=== PATIENT | female | born 1960 | race Caucasian/White ===

== ENCOUNTER → 2020-05-24 | Outpatient (CLI) | payer OTHER ==
[2020-05-24 15:25] LABS: Bilirubin, Urine Neg (Neg); Blood, Urine 1+ (Neg); Glucose Qualitative, Urine Neg (Neg); Ketones, Urine 1+ (Neg); Leukocyte Esterase, Urine 1+ (Neg); Nitrite, Urine Neg (Neg); Protein, Urine 1+ (Neg); Specific Gravity, Urine 1.015 (1.003-1.022); Urobilinogen, Urine 1+ (Normal)
[2020-05-24 15:46] LABS: Appearance, Urine Hazy (Clear); Color, Urine Yellow (P-Yellow)
[2020-05-24 16:12] LABS: Bacteria Rare /hpf; Squamous Epithelial Cells Few /hpf (Few); White Blood Cells, Urine 0-2 /hpf (0-5)
== END | disposition home or self-care (01) ==
LOC: LAB SHORT 08:00 → LAB SRC 08:00
PROVIDERS: Family Medicine
DX: R30.0 Dysuria (principal)
CPT/HCPCS: 81001; 87086

== ENCOUNTER → 2020-07-18 | Outpatient (CLI) | payer OTHER | END | disposition home or self-care (01) | LOC: LAB SHORT 14:23 → LAB SRC 14:23 | DX: R10.2 Pelvic and perineal pain (principal) | CPT/HCPCS: 87086 ==

== ENCOUNTER → 2020-08-01 | Outpatient (CLI) | payer OTHER ==
[2020-08-06 16:07] LABS: HPV 16 Negative (Negative); HPV 18 Negative (Negative); HPV OTHER HR TYPES Negative (Negative)
== END | disposition home or self-care (01) ==
LOC: LAB SHORT 18:15 → LAB 18:15
PROVIDERS: Registered Nurse
DX: Z12.4 Encounter for screening for malignant neoplasm of cervix (principal)
CPT/HCPCS: 87624; G0123

== ENCOUNTER 2021-04-18 07:17 | Day surgery (SDC) | payer OTHER ==
[~2021-04-18] VITALS: Ht 154.9 cm; Wt 62.1 kg
[~2021-04-18 07:17] MED LIST: AMLO10 PO; LOSARTAN POTAS100 M1 PO; MULTIPLE VITAM1 EACH PO; VITAMIN D325 MC3 PO; ZYRTEC10 M2 PO
== END 2021-04-18 09:15 | disposition home or self-care (01) ==
LOC: ORSCSDS 07:17
PROVIDERS: Internal Medicine Gastroenterology
PROC: 0DBM8ZX Excision of Descending Colon, Via Natural or Artificial Opening Endoscopic, Diagnostic (ICD-10-PCS; principal; 2021-04-18 08:30)
DX: K59.09 Other constipation (principal); Z86.010 Personal history of colon polyps; D12.4 Benign neoplasm of descending colon; K64.8 Other hemorrhoids; K57.30 Diverticulosis of large intestine without perforation or abscess without bleeding; I10 Essential (primary) hypertension; Z79.899 Other long term (current) drug therapy; F17.210 Nicotine dependence, cigarettes, uncomplicated
CPT/HCPCS: 88305; J2704; J7120

== ENCOUNTER → 2023-01-27 | Outpatient (CLI) | payer OTHER ==
[2023-01-27 16:48] LABS: Source, Urine Voided
[2023-01-27 17:54] LABS: Appearance, Urine Clear (Clear); Bilirubin, Urine Neg (Neg); Blood, Urine 1+ (Neg); Color, Urine Yellow (P-Yellow); Glucose Qualitative, Urine Neg (Neg); Ketones, Urine Neg (Neg); Leukocyte Esterase, Urine 2+ (Neg); Nitrite, Urine Neg (Neg); Protein, Urine 1+ (Neg); Specific Gravity, Urine 1.015 (1.003-1.022); Urobilinogen, Urine NORM (Normal)
[2023-01-27 18:09] LABS: Bacteria Mod /hpf; Squamous Epithelial Cells Few /hpf (Few)
== END | disposition home or self-care (01) ==
LOC: LAB 09:15 → LAB SHORT 09:15
PROVIDERS: Registered Nurse
DX: R30.0 Dysuria (principal); R35.0 Frequency of micturition
CPT/HCPCS: 81001; 87077; 87086; 87186

== ENCOUNTER 2025-08-28 08:04 | Day surgery (SDC) | payer OTHER ==
[~2025-08-28] VITALS: Ht 156 cm; Wt 68.9 kg
[2025-08-28] VITALS (15 sets, daily range): BP systolic 111–160; BP diastolic 71–91
[~2025-08-28 08:04] MED LIST changes: +ALDACTONE25 MG PO; +ASPIR 8181 M1 PO; +CRANBERRY450 M1; +METO25 PO; +NITR.4SL SL; +ROSUVASTATIN CA10 MG PO; +SUPER BEETS; +TELM80 PO; +Vitamin B Comple1 EA PO; +Vitamin C100 MG PO
[2025-08-28] MEDS ORDERED: FentaNYL Citrate 50 MCG/ML 2 ML Injection ONE ×3 (09:11→11:26)
--- NOTE | 2025-08-28 09:20 | NUR ---
Ambulatory in Day Surgery History, Chart, Medications and Allergies reviewed before start of procedure.Patient confirms NPO status and agrees with scheduled surgery. Patient reports completing Chlorhexadine shower X2 prior to admission to hospital.Surgical site prepped with 2% Chlorhexidine cloth wipe. Patient States Post-Procedure ride home has been arranged WITH S/O
[2025-08-28] MEDS ORDERED: Bupivacaine 0.5% W/EPI 1:200000 SDV 30 ML Vial ONE (09:21)
[2025-08-28] MEDS ORDERED: Albuterol 2.5 MG/3 ML VIAL INH PRN (09:35)
[2025-08-28] MEDS ORDERED: Midazolam HCl 1MG / ML 2ML Vial ONE (09:40)
[2025-08-28] MEDS ORDERED: Ondansetron HCl 2 MG / ML 2ML Vial IV PRN (09:40)
[2025-08-28] MEDS ORDERED: HYDROmorphone HCl/Pf 1MG SYR IV PRN (09:40)
[2025-08-28] MEDS ORDERED: FentaNYL Citrate 50 MCG/ML 2 ML Injection IV PRN ×2 (09:40)
[2025-08-28] MEDS ORDERED: Ondansetron HCl 2 MG / ML 2ML Vial ONE ×2 (09:51→11:26)
[2025-08-28] MEDS ORDERED: Rocuronium Bromide 10 MG/ML 5ML Injection IV ONE (09:51)
[2025-08-28] MEDS ORDERED: Dexamethasone Sod Phos 10 MG/ML 1ML VIAL ONE (09:51)
[2025-08-28] MEDS ORDERED: Midazolam HCl 1MG / ML 2ML Vial IV ONE (10:00)
[2025-08-28] MEDS ORDERED: Ketorolac Tromethamine 30mg Vial ONE (10:08)
[2025-08-28] MEDS ORDERED: Sugammadex Sodium 200 MG/2ML SDV (100 MG/ML) ONE (10:09)
[2025-08-28] MEDS ORDERED: OxyCODONE 5 mg/Acetamin 325 mg TABLET PO PRN (11:35)
--- NOTE | 2025-08-28 12:49 | NUR ---
Pt had emesis following PO pain medication. Consulted with for additional nausea medication
[2025-08-28] MEDS ORDERED: Prochlorperazine Edisylate 10 mg Vial IV PRN (12:50)
[2025-08-28] MEDS ORDERED: Metoclopramide HCl 5MG / ML 2ML Vial IV PRN (12:55)
[2025-08-28] MEDS ORDERED: Prochlorperazine Edisylate 10 mg Vial ONE (13:02)
--- NOTE | 2025-08-28 13:43 | NUR ---
Discharge instructions reviewed with patient. Patient verbalizes understanding. Copy given to patient to take home.Patient tolerating po fluids, rates pain as tolerable at 3/10. Discharged via wheelchair to private car for ride home.
== END 2025-08-28 23:22 | disposition home or self-care (01) ==
LOC: ORSCMMR 08:04 → ORD 09:30 → ORSCMMR 09:30
PROVIDERS: Surgery
PROC: 8E0W4CZ Robotic Assisted Procedure of Trunk Region, Percutaneous Endoscopic Approach (ICD-10-PCS; principal; 2025-08-28 09:30)
PROC: BF532Z0 Other Imaging of Gallbladder and Bile Ducts using Fluorescing Agent, Intraoperative (ICD-10-PCS; principal; 2025-08-28 09:30)
PROC: 0FT44ZZ Resection of Gallbladder, Percutaneous Endoscopic Approach (ICD-10-PCS; principal; 2025-08-28 09:30)
DX: K80.20 Calculus of gallbladder without cholecystitis without obstruction (principal); E78.5 Hyperlipidemia, unspecified; I25.10 Atherosclerotic heart disease of native coronary artery without angina pectoris; I10 Essential (primary) hypertension; Z87.891 Personal history of nicotine dependence; Z79.899 Other long term (current) drug therapy; Z79.82 Long term (current) use of aspirin
CPT/HCPCS: 88304; A9270; J0780; J1100; J1885; J2250; J2405; J2704; J3010; J7120

== ENCOUNTER 2025-09-02 03:32 | Emergency (ER) | payer OTHER ==
[~2025-09-02] VITALS: Ht 154.9 cm; Wt 68.0 kg
[2025-09-02] MEDS ORDERED: Ondansetron HCl 2 MG / ML 2ML Vial IV ONE (04:00)
[2025-09-02] MEDS ORDERED: OXYC5 PO (04:03)
[2025-09-02 04:10] LABS: BASOPHILS ABSOLUTE AUTO 0.09 K/mm3 (0.00-0.23); BASOPHILS PERCENT AUTO 1 % (0-2); EOSINOPHILS ABSOLUTE AUTO 0.34 K/mm3 (0.00-0.68); EOSINOPHILS PERCENT AUTO 2 % (0-6); Hematocrit 34.5 % (33.0-51.0); Hemoglobin 12.2 g/dL (11.5-16.0); IMMATURE GRAN ABSOLUTE AUTO 0.06 K/mm3 (0.00-0.10); IMMATURE GRAN PERCENT AUTO 0 % (0-1); LYMPHOCYTES ABSOLUTE AUTO 0.91 K/mm3 (0.84-5.20); LYMPHOCYTES PERCENT AUTO 6 % (21-46); MONOCYTES ABSOLUTE AUTO 1.18 K/mm3 (0.16-1.47); MONOCYTES PERCENT AUTO 8 % (4-13); Mean Corpuscular HGB Conc 35.4 g/dL (31.5-36.5); Mean Corpuscular Volume 86 fL (80-100); NEUTROPHILS ABSOLUTE AUTO 11.76 K/mm3 (1.96-9.15); NEUTROPHILS PERCENT AUTO 82 % (41-73); NRBC ABSOLUTE 0.00 K/mm3 (0.00-0.02); NRBC Auto 0.0 /100 WBC (0.0-0.2); Platelet Count 324 K/mm3 (150-400); RDW Coefficient Variation 14.1 % (11.7-14.2); RDW Standard Deviation 43.9 fL (35.1-46.3)
[2025-09-02 04:31] LABS: Alanine Aminotransfer (ALT/SGP 31.0 U/L (12-78); Albumin, Blood 3.7 g/dL (3.4-5.0); Albumin/Globulin Ratio 1.0 (0.8-1.8); Anion Gap 9.0 mmol/L (3-11); Aspartate Aminotrans (AST/SGOT 27.0 U/L (12-37); Bilirubin, Total 0.4 mg/dL (0.1-1.0); Blood Urea Nitrogen 16.0 mg/dL (8-24); CO2, Blood 26.0 mmol/L (21-32); Calcium, Blood 9.0 mg/dL (8.5-10.1); Chloride, Blood 98.0 mmol/L (98-108); Creatinine, Blood 0.69 mg/dL (0.40-1.00); Globulin, Blood 3.6 g/dL (2.2-4.0); Glucose, Blood 117.0 mg/dL (70-99); Potassium, Blood 4.1 mmol/L (3.5-5.5); Sodium, Blood 129.0 mmol/L (136-145); Total Protein, Blood 7.3 g/dL (6.4-8.2)
[2025-09-02] MEDS ORDERED: Ketorolac Tromethamine 15mg Vial IV ONE (05:45)
[2025-09-02 05:53] LABS: Source, Urine Clean Catch
[2025-09-02 06:00] VITALS: BP 126/75
[2025-09-02 06:04] LABS: Bilirubin, Urine Neg (Neg); Glucose Qualitative, Urine Neg (Neg); Ketones, Urine Neg (Neg); Leukocyte Esterase, Urine Neg (Neg); Protein, Urine Neg (Neg); Specific Gravity, Urine 1.010 (1.003-1.022); Urobilinogen, Urine NORM (Normal)
[2025-09-02] MEDS ORDERED: NS 1,000 ML IV SCH (06:10)
[2025-09-02 06:18] LABS: Color, Urine Pale Yellow (P-Yellow)
[2025-09-02 06:19] LABS: Red Blood Cells, Urine 0-2 /hpf (0-2); White Blood Cells, Urine Not Seen /hpf (0-5)
== END 2025-09-02 07:23 | disposition home or self-care (01) ==
LOC: ER 03:32
PROVIDERS: Emergency Medicine
DX: R55 Syncope and collapse (principal); E86.0 Dehydration; E87.1 Hypo-osmolality and hyponatremia; S09.90XA Unspecified injury of head, initial encounter; I10 Essential (primary) hypertension; F17.200 Nicotine dependence, unspecified, uncomplicated; Z90.49 Acquired absence of other specified parts of digestive tract; Z79.82 Long term (current) use of aspirin; Z79.899 Other long term (current) drug therapy; Z59.89 Other problems related to housing and economic circumstances; W19.XXXA Unspecified fall, initial encounter
CPT/HCPCS: 70450; 72125; 80053; 81001; 84484; 85025; 93005; 93010; 96374; 96375; 99284-25; J1885; J2405; J7030